=== PATIENT | female | born 2000 | race African-American/Black ===

== ENCOUNTER 2018-09-11 06:12 | Emergency (ER) | payer MEDICAID ==
--- NOTE | 2018-09-11 06:37 | ED Physician Chart ---
ED Chief Complaint/HPI - Patient Information Date Seen:: 09/11/18 Time Seen:: 06:33 Chief Complaint:: Lower abdominal pain History of Present Illness:: 18 yo female developed lower abdominal and suprapubic pain radiating to the back for 1 day with urinary burning sensation and frequency. Pt had chills and vomited once with loss of appetite. Pt denied fever. Allergies:: Allergies Allergy/AdvReac Type Severity Reaction Status Date / Time No Known Allergies Allergy Verified 09/11/18 06:19 Vitals:: Vital Signs - 8 hr 09/11/18 06:15 Temp 100.1 F HR 100 RR 18 BP 111/69 O2 Sat % 99 ED Review of Systems - Review of Systems General/Constitutional: No fever, Chills Skin: No rash Head: Headache Eyes: No pain ENT: No earache Neck: Neck pain Cardio Vascular: No chest pain Pulmonary: No SOB GI: Nausea, Vomiting G/U: Dysuria, Frequency Supervisor Braiding: No vaginal discharge Musculoskeletal: No bone or joint pain Neurological: No focal symptoms ED Past Medical History - Past Medical History Past Medical History: No significant medical hx Social History: Smoker, No Alcohol, Illicit Drug Use (marijuana) Surgical History: None Family Medical History - Family Member Mother History Unknown: Yes ED Physical Exam - Physical Examination General/Constitutional: Awake, Alert Head: Atraumatic Eyes: PERRL, EOMI Skin: No skin lesions ENMT: Nasal exam nl Neck: No nuchal rigidity Respiratory: Nl effort/Exclusion, No Wheeze/Rhonchi/Rales Cardio Vascular: RRR, No murmur, gallop, rubs, NL S1 S2 Other GI comments:: Low abdomen tenderness Extremities: normal strength in all extremities Neuro/Psych: No focal deficits ED Labs/Radiology/EKG Results - Lab Results Results: Laboratory Last Values WBC 15.6 Th/cmm (4.8-10.8) H 09/11/18 07:00 Corrected WBC (auto) 15.6 Th/cmm (4.8-10.8) H 09/11/18 07:00 RBC 4.93 Mil/cmm (3.80-5.10) 09/11/18 07:00 Hgb 12.6 gm/dL (12-16) 09/11/18 07:00 Hct 39.1 % (41.0-60) L 09/11/18 07:00 MCV 79.3 fl (81-100) L 09/11/18 07:00 MCH 25.5 pg (27.0-31.0) L 09/11/18 07:00 MCHC Differential 32.2 pg (28.0-36.0) 09/11/18 07:00 RDW 15.1 % (11.5-20.0) 09/11/18 07:00 Plt Count 176 Th/cmm (150-400) 09/11/18 07:00 MPV 11.8 fl 09/11/18 07:00 Add Manual Diff YES 09/11/18 07:00 PT 12.6 SECONDS (9.5-11.5) H 09/11/18 07:00 INR 1.22 (0.5-1.4) 09/11/18 07:00 PTT (Actin FS) 29.2 SECONDS (26.0-38.0) 09/11/18 07:00 Sodium 135 mEq/L (136-145) L 09/11/18 07:00 Potassium 3.6 mEq/L (3.5-5.1) 09/11/18 07:00 Chloride 100 mEq/L (98-107) 09/11/18 07:00 Carbon Dioxide 25.0 mEq/L (21.0-31.0) 09/11/18 07:00 Anion Gap 13.6 (7.0-16.0) 09/11/18 07:00 BUN 6 mg/dL (7-25) L 09/11/18 07:00 Creatinine 0.6 mg/dL (0.6-1.2) 09/11/18 07:00 Est GFR ( Amer) > 60.0 ml/min (>90) 09/11/18 07:00 Est GFR (Non-Af Amer) > 60.0 ml/min 09/11/18 07:00 BUN/Creatinine Ratio 10.0 09/11/18 07:00 Glucose 97 mg/dL (70-105) 09/11/18 07:00 Whole Bld Lactic Acid 1.30 mmol/L (0.60-1.99) 09/11/18 08:40 Calcium 9.9 mg/dL (8.6-10.3) 09/11/18 07:00 Total Bilirubin 1.2 mg/dL (0.3-1.0) H 09/11/18 07:00 AST 12 U/L (13-39) L 09/11/18 07:00 ALT 9 U/L (7-52) 09/11/18 07:00 Alkaline Phosphatase 52 U/L (34-104) 09/11/18 07:00 Total Protein 8.0 gm/dL (6.0-8.3) 09/11/18 07:00 Albumin 4.6 gm/dL (3.7-5.3) 09/11/18 07:00 Globulin 3.4 gm/dL 09/11/18 07:00 Albumin/Globulin Ratio 1.4 (1.0-1.8) 09/11/18 07:00 Amylase 59 U/L (29-103) 09/11/18 07:00 Lipase 10 U/L (11-82) L 09/11/18 07:00 Serum , Qual NEGATIVE (NEGATIVE) 09/11/18 07:00 Urine Source CLEAN C 09/11/18 08:00 Urine Color STRAW 09/11/18 08:00 Urine Clarity SLIGHT HAZY (CLEAR) 09/11/18 08:00 Urine pH 5.5 (4.6 - 8.0) 09/11/18 08:00 Ur Specific Curtis < 1.005 (1.005-1.030) L 09/11/18 08:00 Urine Protein NEGATIVE mg/dL (NEGATIVE) 09/11/18 08:00 Urine Glucose (UA) NEGATIVE mg/dL (NEGATIVE) 09/11/18 08:00 Urine Ketones 15 mg/dL (NEGATIVE) H 09/11/18 08:00 Urine Blood TRACE (NEGATIVE) 09/11/18 08:00 Urine Nitrate NEGATIVE (NEGATIVE) 09/11/18 08:00 Urine Bilirubin NEGATIVE (NEGATIVE) 09/11/18 08:00 Urine Urobilinogen 0.2 E.U./dL (0.2 - 1.0) 09/11/18 08:00 Ur Leukocyte Esterase MODERATE (NEGATIVE) H 09/11/18 08:00 Urine RBC 0-2 /hpf (0-5) 09/11/18 08:00 Urine WBC 10-25 /hpf (0-5) H 09/11/18 08:00 Ur Epithelial Cells FEW /lpf (FEW) 09/11/18 08:00 Urine Bacteria 1+ /hpf (NONE SEEN) H 09/11/18 08:00 Urine Opiates Screen POSITIVE (NEGATIVE) H 09/11/18 08:00 Urine Methadone Screen NEGATIVE (NEGATIVE) 09/11/18 08:00 Ur Barbiturates Screen NEGATIVE (NEGATIVE) 09/11/18 08:00 Ur Tricyclics Screen NEGATIVE (NEGATIVE) 09/11/18 08:00 Ur Phencyclidine Scrn NEGATIVE (NEGATIVE) 09/11/18 08:00 Amphetamines Screen NEGATIVE (NEGATIVE) 09/11/18 08:00 U Methamphetamines Scrn NEGATIVE (NEGATIVE) 09/11/18 08:00 U Benzodiazepines Scrn NEGATIVE (NEGATIVE) 09/11/18 08:00 U Cocaine Metab Screen NEGATIVE (NEGATIVE) 09/11/18 08:00 U Cannabinoids Screen POSITIVE (NEGATIVE) H 09/11/18 08:00 - Radiology Results Results: CT abdomen/pelvis wo contrast: question small amount of free fluid within the cul-de-sac region of the pelvis, poor delineation of uterine margins which may be somewhat enlarged. A pelvic ultrasound exam would provide additional detail and assessment. Pelvic ultrasound: markedly limited exam due to bowel gas and bowel peristalsis. Mildly prominent right ovary with 1.8cm ovarian follicular cyst. Probable prominent bowel loops within the pelvis. ED Assessment - Assessment General Assessment: Sepsis Urinary tract infection Abdominal pain Substance use Assessment/Comments:: CBC, CMP, UA, urine drug screen CT abdomen/pelvis wo contrast Morphine IV Pantoprazole IV NS 1L bolus IV Rocephin IV Flagyl IV Dilaudid IV Pelvic u/s ED Septic Shock - . Is Septic Shock (SBP<90, OR Lactate>4 mmol\L) present?: No - <6hrs of presentation: Vital Signs: Vital Signs - 8 hr 09/11/18 06:15 Temp 100.1 F HR 100 RR 18 BP 111/69 O2 Sat % 99 ED Reassessment (Disposition) - Reassessment Reassessment Condition:: Improved - Aftercare/Follow up Instructions Notes:: D/c home F/u PCP or return to ER if symptoms worsen Medication Prescribed:: Keflex 500mg PO q8h x 7 days Metronidazole 500mg PO q12h x 7 days - Patient Disposition Discharge/Transfer:: Home
[2018-09-11] MEDS ORDERED: Morphine Sulfate 2 mg/mL 1mL Syr IV STA (06:43)
[2018-09-11] MEDS ORDERED: Morphine Sulfate 2 mg/mL 1mL Syr ONE (06:59)
[2018-09-11 07:51] LABS: CORRECTED WBC 15.6 Th/cmm (4.8-10.8); WHITE BLOOD COUNT 15.6 Th/cmm (4.8-10.8)
[2018-09-11 07:52] LABS: HEMATOCRIT 39.1 % (41.0-60); HEMOGLOBIN 12.6 gm/dL (12-16); MEAN CELL VOLUME 79.3 fl (81-100); MEAN CORPUSCULAR HEMOGLOBIN 25.5 pg (27.0-31.0); MEAN CORPUSCULAR HGB CONC 32.2 pg (28.0-36.0); PLATELET COUNT 176 Th/cmm (150-400); RED BLOOD COUNT 4.93 Mil/cmm (3.80-5.10); RED CELL DISTRIBUTION WIDTH 15.1 % (11.5-20.0)
[2018-09-11 08:12] LABS: SODIUM SERUM 135 mEq/L (136-145)
[2018-09-11 08:13] LABS: ANION GAP 13.6 (7.0-16.0); BUN - UREA NITROGEN 6 mg/dL (7-25); CALCIUM SERUM 9.9 mg/dL (8.6-10.3); CHLORIDE 100 mEq/L (98-107); CREATININE - SERUM 0.6 mg/dL (0.6-1.2); GFR AFRICAN-AMERICAN > 60.0 ml/min (>90); GFR NON AFRICAN-AMERICAN > 60.0 ml/min; GLUCOSE 97 mg/dL (70-105); POTASSIUM SERUM 3.6 mEq/L (3.5-5.1)
[2018-09-11 08:14] LABS: ALB/GLOB RATIO 1.4 (1.0-1.8); ALBUMIN 4.6 gm/dL (3.7-5.3); ALKALINE PHOSPHATASE 52 U/L (34-104); BILIRUBIN,TOTAL 1.2 mg/dL (0.3-1.0); SGOT 12 U/L (13-39); SGPT/ALT 9 U/L (7-52)
[2018-09-11 08:15] LABS: AMYLASE SERUM 59 U/L (29-103); LIPASE 10 U/L (11-82)
[2018-09-11] MEDS ORDERED: Sodium Chloride 0.9% 1,000 ML IV ONE (08:28)
[2018-09-11] MEDS ORDERED: cefTRIAXone 1 GM in Sodium Chloride 0.9% 50 ML IV ONE (08:29)
[2018-09-11 08:30] LABS: INR 1.22 (0.5-1.4)
[2018-09-11 08:45] LABS: URINE SOURCE CLEAN C
--- NOTE | 2018-09-11 08:59 | Diagnostic Imaging Report ---
CT scan abdomen and pelvis without intravenous contrast HISTORY: Pain Total DLP equals 221 CTDI equals 5.2 Axial sections were obtained from the xiphoid process down to the pubic symphysis. Exam is limited due to a limited amount of intra-abdominal fat and absence of oral/bowel contrast. Poor delineation of bowel wall margins. The liver exhibits a homogeneous parenchyma. No focal lesions. The spleen appears normal. Suboptimal delineation of the pancreatic margins. No focal renal lesions. No calculi. No hydronephrosis. As noted above, evaluation the pelvis is limited due to the absence of oral/bowel contrast. There is a contracted urinary bladder. Poor delineation of the margins of the uterus which may be somewhat enlarged. Question small amount of free fluid in the cul-de-sac area. A pelvic ultrasound exam would provide for further assessment. The appendix cannot be delineated. IMPRESSION: 1. Extremely limited exam due to a limited amount of intra-abdominal fat and absence of oral/bowel contrast. Poor delineation of organ margins and bowel margins. 2. Question small amount of free fluid within the cul-de-sac region of the pelvis. Poor delineation of uterine margins which may be somewhat enlarged. A pelvic ultrasound exam would provide additional detail and assessment.
[2018-09-11 09:14] LABS: AMPHETAMINE URINE NEGATIVE (NEGATIVE); BARBITURATES URINE NEGATIVE (NEGATIVE); COCAINE METABOLITE QUAL URINE NEGATIVE (NEGATIVE); METHADONE URINE NEGATIVE (NEGATIVE); METHAMPHETAMINES QUAL URINE NEGATIVE (NEGATIVE); OPIATES (MORPHINE) QUAL. URINE POSITIVE (NEGATIVE); PHENCYCLIDINE (PCP) URINE NEGATIVE (NEGATIVE); TRICYCLICS (TCA) QUAL. URINE NEGATIVE (NEGATIVE)
[2018-09-11 09:15] LABS: BENZODIAZEPINES QUAL URINE NEGATIVE (NEGATIVE); CANNABINOID THC POSITIVE (NEGATIVE)
[2018-09-11] MEDS ORDERED: metroNIDAZOLE 500mg/NS 100mL 500 MG/100 ML BAG IV ONE ×2 (09:21→09:25)
[2018-09-11 09:25] LABS: URINE COLOR STRAW
[2018-09-11 09:26] LABS: URINE BILIRUBIN NEGATIVE (NEGATIVE); URINE BLOOD TRACE (NEGATIVE); URINE CLARITY SLIGHT HAZY (CLEAR); URINE GLUCOSE (UA) NEGATIVE (NEGATIVE); URINE KETONE 15 mg/dL (NEGATIVE); URINE MICROSCOPIC INDICATED? YES
[2018-09-11 09:27] LABS: URINE LEUKOCYTE ESTERASE MODERATE (NEGATIVE); URINE NITRATE NEGATIVE (NEGATIVE); URINE PH 5.5 (4.6 - 8.0); URINE PROTEIN NEGATIVE (NEGATIVE); URINE UROBILINOGEN 0.2 E.U./dL (0.2 - 1.0)
[2018-09-11] MEDS ORDERED: HYDROmorphone 1 mg/mL 1mL Syr IVP STA ×2 (09:31→09:32)
[2018-09-11 09:33] LABS: URINE RBC 0-2 /hpf (0-5)
[2018-09-11 09:34] LABS: URINE BACTERIA 1+ /hpf (NONE SEEN); URINE EPITHELIAL CELLS FEW /lpf (FEW)
[2018-09-11] MEDS ORDERED: HYDROmorphone 1 mg/mL 1mL Syr ONE (09:34)
[2018-09-11 11:09] LABS: LYMPHOCYTE 7 % (20-50); MONOCYTE 4 % (2-10); NEUTROPHILS 89 % (40-80)
--- NOTE | 2018-09-11 11:35 | Diagnostic Imaging Report ---
Ultrasound pain HISTORY: Lower abdominal pain. Pelvic fluid. LMP 08/29/2018. Beta hCG is negative. COMPARISON: CT abdomen and pelvis earlier the same day Technique: Longitudinal and transverse sonographic sector images of the pelvis were obtained transabdominally and transvaginally. FINDINGS: Exam is limited due to bowel gas and bowel peristalsis. The uterus measures 11.6 x 3.4 x 4.5 cm and demonstrates a heterogeneous echotexture. The uterus appears retroverted. There is heterogeneity of the endometrium limiting assessment of the endometrium. Endometrial echo complex measures 4 mm. Small amount of fluid is seen within the endometrial cavity. Right ovary measures 4.4 x 3.3 x 2.0 cm demonstrating a dominant 1.8 cm cyst. Left ovary measures 2.7 x 1.9 x 3 cm. No gross free fluid identified. There appear to be prominent bowel loops within the pelvis. IMPRESSION: Markedly limited exam due to bowel gas and bowel peristalsis. Mildly prominent right ovary with 1.8 cm ovarian follicular cyst. Short-term follow-up ultrasound may be obtained to ensure resolution. Markedly heterogeneous uterus, nonspecific Suboptimal assessment of the endometrial echo complex. Small amount of fluid was noted in the endometrial cavity. Probable prominent bowel loops within the pelvis. Inflammatory processes can also not be excluded. Clinical correlation is needed.
== END 2018-09-11 14:00 | disposition home or self-care (01) ==
LOC: ER 06:12
DX: A41.9 Sepsis, unspecified organism (principal); N39.0 Urinary tract infection, site not specified; F19.90 Other psychoactive substance use, unspecified, uncomplicated; F17.200 Nicotine dependence, unspecified, uncomplicated
CPT/HCPCS: 99284; 96365; 96367; 96375; 76856; 74176; 36415; 83605; 80307; 85007; 85025; 85610; 87086; 81001; 82150; 84703; 83690; 80053; 87040; C9113; J2270; J0696; 90799; J1170; J7030